=== PATIENT | male | born 1980 | race Caucasian/White ===

== ENCOUNTER 2020-06-10 09:47 | Emergency (ER) | payer OTHER, BC ==
[~2020-06-10] VITALS: Ht 170.2 cm; Wt 75.3 kg
--- NOTE | 2020-06-10 09:52 | NUR ---
Pt taken to ER bed 4.
[2020-06-10 09:54] VITALS: BP 139/95
--- NOTE | 2020-06-10 10:00 | NUR ---
Dr. Lozada at pt bedside for further evaluation.
[2020-06-10] MEDS ORDERED: HYDROcodone/APAP 5/325 MG 1 TAB TAB PO ONE (10:05)
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
--- NOTE | 2020-06-10 10:19 | NUR ---
technical trainer at pt bedside.
--- NOTE | 2020-06-10 10:22 | NUR ---
Pt taken to CT via ryong.
[2020-06-10 12:31] VITALS: BP 139/95
--- NOTE | 2020-06-10 12:32 | NUR ---
Patient discharged with v/s stable. Written and verbal after care instructions given and explained. Patient verbalized understanding. Ambulatory with steady gait. All questions addressed prior to discharge. Advised to follow up with PMD.
== END 2020-06-10 12:32 | disposition home or self-care (01) ==
LOC: MED 09:47
DX: S13.4XXA Sprain of ligaments of cervical spine, initial encounter (principal); R51.9 Headache, unspecified; M54.2 Cervicalgia; E04.1 Nontoxic single thyroid nodule; V49.9XXA Car occupant (driver) (passenger) injured in unspecified traffic accident, initial encounter; Y93.89 Activity, other specified; Y92.89 Other specified places as the place of occurrence of the external cause; Y99.8 Other external cause status
CPT/HCPCS: 70450; 71045; 72125; 99285